=== PATIENT | male | born 1970 | race Two or more races ===

== ENCOUNTER 2024-06-21 19:08 | Inpatient (IN) | payer OTHER ==
[2024-06-21 19:36] VITALS: BMI 22.1
[2024-06-21] MEDS ORDERED: DICYCLOMINE HCL 10 MG CAPSULE PO PRN (20:31)
[2024-06-21] MEDS ORDERED: guaiFENesin 600 MG TABLET.ER (FP) PO PRN (20:31)
[2024-06-21] MEDS ORDERED: MAGNESIUM HYDROX 2400MG/30ML ORAL SUSPENSION 30 ML CUP PO PRN (20:31)
[2024-06-21] MEDS ORDERED: BENZOCAINE/MENTHOL (CHLORASEPTIC ) LOZENGE MM PRN (20:31)
[2024-06-21] MEDS ORDERED: NICOTINE POLACRILEX 4 MG GUM BUC PRN (20:31)
[2024-06-21] MEDS ORDERED: BENZONATATE 200 MG CAPSULE PO PRN (20:31)
[2024-06-21] MEDS ORDERED: IBUPROFEN 400 MG TABLET (FP) PO PRN (20:31)
[2024-06-21] MEDS ORDERED: ACETAMINOPHEN 325 MG TABLET (FP) PO PRN (20:31)
[2024-06-21] MEDS ORDERED: IBUPROFEN 600 MG TABLET (FP) PO PRN (20:31)
[2024-06-21] MEDS ORDERED: BISMUTH SUBSALICYLATE 524 MG/30 ML PO PRN (20:31)
[2024-06-21] MEDS ORDERED: NALOXONE (NARCAN) HCL 4 MG/0.1 ML SPRAY NS PRN (20:31)
[2024-06-21] MEDS ORDERED: MAG HYDROX/AL HYDROX/SIMETH 30 ML UNIT-DOSE CUP PO PRN (20:31)
[2024-06-21] MEDS ORDERED: LOPERAMIDE HCL 2 MG CAPSULE PO PRN (20:31)
[2024-06-21] MEDS ORDERED: POLYETHYLENE GLYCOL (HEALTHYLAX) 3350 17 GM PACKET PO PRN (20:31)
[2024-06-21] MEDS ORDERED: NALOXONE (NYS OPIOID OVERDOSE PROGRAM) 4 MG/0.1 ML SPRAY NS PRN (20:31)
[2024-06-21] MEDS ORDERED: ONDANSETRON *ODT* 4 MG TABLET SL PRN (20:31)
[2024-06-21] MEDS ORDERED: methaDONE HCL 10 MG TABLET (FOR DETOX USE ONLY) ONE (21:24)
[2024-06-21] MEDS ORDERED: METHOCARBAMOL 500 MG TABLET ONE (21:25)
[2024-06-21] MEDS: methaDONE HCL 10 MG TABLET (FOR DETOX USE ONLY) PO ONE (21:27)
[2024-06-21] MEDS: METHOCARBAMOL 500 MG TABLET PO PRN (21:40)
[2024-06-21] MEDS: THIAMINE 100 MG TABLET PO SCH (22:39)
[2024-06-21] MEDS: MELATONIN 5 MG TABLETS PO SCH (22:39)
[2024-06-21] MEDS ORDERED: MELATONIN 5 MG TABLETS ONE (23:05)
[2024-06-22] MEDS: PANTOPRAZOLE 40 MG TABLET PO SCH (09:30)
[2024-06-22] MEDS: methaDONE HCL 10 MG TABLET PO SCH (09:30)
[2024-06-22] MEDS: NICOTINE 21 MG/24 HOURS TOPICAL PATCH TD SCH (09:30)
[2024-06-22] MEDS: GABAPENTIN 300 MG CAPSULE PO SCH (09:30)
[2024-06-22] MEDS: PRENATAL VITAMINS W/ FOLIC ACID TABLET (FP) PO SCH (09:30)
[2024-06-22] MEDS: PSEUDOEPHEDRINE HCL 30 MG TABLET PO SCH (10:52)
[2024-06-22 14:31] LABS: HEMOGLOBIN 13.1 GM/dL (11.7-16.9); MCH 31.7 pg (25.7-33.7); MCHC 33.5 g/dl (32.0-35.9); MEAN CELL VOLUME 94.5 fl (80-96); MEAN PLT VOLUME 9.2 fl (7.5-11.1); PLATELET COUNT 183 10^3/uL (134-434); RBC 4.13 M/mm3 (4.00-5.60); RDW 15.5 % (11.9-15.9)
[2024-06-22 15:13] LABS: CHLORIDE 111 mmol/L (98-107); POTASSIUM 4.1 mmol/L (3.5-5.1); SODIUM 142 mmol/L (136-145)
[2024-06-22 15:15] LABS: ALBUMIN 3.2 g/dl (3.4-5.0); ANION GAP 4 mmol/L (4-13); BLOOD UREA NITROGEN 16.2 mg/dL (7-18); CALCIUM 9.4 mg/dL (8.5-10.1); CO2 26 mmol/L (21-32); GLUCOSE,RANDOM 94 mg/dL (74-106)
[2024-06-22 15:18] LABS: CREATININE 1.1 mg/dL (0.55-1.3); SGOT/AST 16 U/L (15-37); SGPT/ALT 17 U/L (13-61)
[2024-06-22 15:20] LABS: BILIRUBIN,TOTAL 0.3 mg/dL (0.2-1); TOT PROT 8.4 g/dl (6.4-8.2)
[2024-06-22 15:21] LABS: ALK PHOS 72 U/L (45-117)
[2024-06-22] MEDS: cloNIDine HCL 0.1 MG TABLET PO PRN (19:33)
[2024-06-22] MEDS: ATORVASTATIN CA 40 MG TABLET (FP) PO SCH (22:44)
[2024-06-22] MEDS: busPIRone HCL 10 MG TABLET (FP) PO SCH (22:45)
[2024-06-22] MEDS: QUEtiapine FUMARATE 100 MG TABLET (FP) PO SCH (22:45)
[2024-06-23] MEDS: hydrOXYzine PAMOATE 25 MG CAPSULE (FP) PO PRN (07:43)
[2024-06-23 09:55] VITALS: RESP 18
[2024-06-23] MEDS ORDERED: methaDONE HCL 10 MG TABLET (FOR DETOX USE ONLY) PO ONE (10:00)
[2024-06-23] MEDS: QUEtiapine FUMARATE 50 MG TABLET PO ONE (12:05)
[2024-06-23 13:03] VITALS: BP 98/60; PULSE 90; TEMP 97.5
[2024-06-23] MEDS ORDERED: QUEtiapine FUMARATE 100 MG TABLET (FP) PO SCH (22:00)
[2024-06-24] MEDS ORDERED: methaDONE HCL 10 MG TABLET PO ONE (07:58)
[2024-06-25] MEDS ORDERED: methaDONE HCL 10 MG TABLET PO SCH (06:00)
[2024-06-25] MEDS ORDERED: methaDONE HCL 10 MG TABLET (FOR DETOX USE ONLY) PO ONE (10:00)
== END 2024-06-23 15:32 | disposition other institution (70) | DRG 773 ==
LOC: YASAS 19:08 → Y3N 06-22 00:55
PROVIDERS: ADMIT Allergy & Immunology; ATTEND Surgery
PROC: HZ2ZZZZ Detoxification Services for Substance Abuse Treatment (ICD-10-PCS; principal; 2024-06-22)
DX: F11.23 Opioid dependence with withdrawal (principal); F14.20 Cocaine dependence, uncomplicated; F17.210 Nicotine dependence, cigarettes, uncomplicated; F19.24 Other psychoactive substance dependence with psychoactive substance-induced mood disorder; E78.5 Hyperlipidemia, unspecified; G47.00 Insomnia, unspecified; Z59.00 Homelessness unspecified
CPT/HCPCS: 36415; 80053; 80305; 80307; 85027; 86780; 87811; 93005; 93010

== ENCOUNTER 2024-10-02 12:55 | Inpatient (IN) | payer OTHER ==
[2024-10-02 13:13] VITALS: BMI 21.2
[2024-10-02] MEDS ORDERED: BENZONATATE 200 MG CAPSULE PO PRN (15:47)
[2024-10-02] MEDS ORDERED: NICOTINE POLACRILEX 2 MG GUM BUC PRN (15:47)
[2024-10-02] MEDS ORDERED: NICOTINE POLACRILEX 2 MG LOZENGE BC PRN (15:47)
[2024-10-02] MEDS ORDERED: guaiFENesin 600 MG TABLET.ER (FP) PO PRN (15:47)
[2024-10-02] MEDS ORDERED: P-EPHED 60MG/TRIPROLIDI 2.5MG TABLET PO PRN (15:47)
[2024-10-02] MEDS ORDERED: POLYETHYLENE GLYCOL (HEALTHYLAX) 3350 17 GM PACKET PO PRN (15:47)
[2024-10-02] MEDS ORDERED: ACETAMINOPHEN 325 MG TABLET (FP) PO PRN (15:47)
[2024-10-02] MEDS ORDERED: LOPERAMIDE HCL 2 MG CAPSULE PO PRN (15:47)
[2024-10-02] MEDS ORDERED: NALOXONE (NARCAN) HCL 4 MG/0.1 ML SPRAY NS PRN (15:47)
[2024-10-02] MEDS ORDERED: IBUPROFEN 600 MG TABLET (FP) PO PRN (15:47)
[2024-10-02] MEDS ORDERED: MAGNESIUM HYDROX 2400MG/30ML ORAL SUSPENSION 30 ML CUP PO PRN (15:47)
[2024-10-02] MEDS: ATORVASTATIN CA 40 MG TABLET (FP) PO SCH (21:30)
[2024-10-02] MEDS: THIAMINE 100 MG TABLET PO SCH (21:30)
[2024-10-02] MEDS: QUEtiapine FUMARATE 50 MG TABLET PO ONE (21:30)
[2024-10-02] MEDS: MELATONIN 5 MG TABLETS PO SCH (21:32)
[2024-10-02] MEDS ORDERED: MELATONIN 5 MG TABLETS PO SCH (22:00)
[2024-10-02] MEDS: GABAPENTIN 300 MG CAPSULE PO SCH (22:59)
[2024-10-03] MEDS: PRENATAL VITAMINS W/ FOLIC ACID TABLET (FP) PO SCH (10:06)
[2024-10-03] MEDS: PANTOPRAZOLE 40 MG TABLET PO SCH (10:06)
[2024-10-03] MEDS: BUPRENORPHINE/NALOXONE 8 MG/2 MG FILM PACKET SL SCH (10:06)
[2024-10-03 11:10] LABS: CHLORIDE 107 mmol/L (98-107); POTASSIUM 4.2 mmol/L (3.5-5.1); SODIUM 139 mmol/L (136-145)
[2024-10-03 11:12] LABS: HEMATOCRIT 33.1 % (35.4-49); HEMOGLOBIN 11.3 GM/dL (11.7-16.9); MCH 32.7 pg (25.7-33.7); MEAN CELL VOLUME 96.1 fl (80-96); MEAN PLT VOLUME 8.7 fl (7.5-11.1); PLATELET COUNT 176 10^3/uL (134-434); RBC 3.44 M/mm3 (4.00-5.60); RDW 16.2 % (11.9-15.9); WHITE BLOOD COUNT 4.7 K/mm3 (4.0-10.0)
[2024-10-03 11:15] LABS: ANION GAP 6 mmol/L (4-13); CO2 26 mmol/L (21-32); GLUCOSE,RANDOM 87 mg/dL (74-106)
[2024-10-03 11:20] LABS: BILIRUBIN,TOTAL 0.3 mg/dL (0.2-1); BLOOD UREA NITROGEN 14.8 mg/dL (7-18); SGPT/ALT < 6 U/L (13-61)
[2024-10-03 11:21] LABS: CREATININE 0.9 mg/dL (0.55-1.3); SGOT/AST 18 U/L (15-37)
[2024-10-03 11:22] LABS: ALK PHOS 77 U/L (45-117)
[2024-10-03 11:23] LABS: TOT PROT 7.8 g/dl (6.4-8.2)
[2024-10-03] MEDS: QUEtiapine FUMARATE 50 MG TABLET PO SCH (11:26)
[2024-10-03] MEDS: cloNIDine HCL 0.1 MG TABLET PO PRN (14:14)
[2024-10-03] MEDS: QUEtiapine FUMARATE 100 MG TABLET (FP) PO SCH (21:17)
[2024-10-05 11:12] LABS: PH,URINE 5.5 (5.0-8.0); URINE APPEARANCE CLEAR; URINE BILIRUBIN NEGATIVE (NEGATIVE); URINE COLOR YELLOW; URINE GLUCOSE (UA) NEGATIVE (NEGATIVE); URINE KETONE NEGATIVE (NEGATIVE); URINE LEUK ESTERASE NEGATIVE (NEGATIVE); URINE NITRITE NEGATIVE (NEGATIVE); URINE PROTEIN NEGATIVE (NEGATIVE); URINE UROBILINOGEN 0.2 mg/dL (0.2-1.0)
[2024-10-05] MEDS: IBUPROFEN 400 MG TABLET (FP) PO PRN (14:17)
[2024-10-06] MEDS: BUPRENORPHINE/NALOXONE 8 MG/2 MG FILM PACKET SL SCH (21:32)
[2024-10-06] MEDS: QUEtiapine FUMARATE 100 MG TABLET (FP) PO SCH (21:32)
[2024-10-07] MEDS: BUPRENORPHINE/NALOXONE 4 MG/1 MG FILM PACKET SL SCH (13:40)
[2024-10-07] MEDS: QUEtiapine FUMARATE 200 MG TABLET PO SCH (19:52)
[2024-10-08] MEDS: QUEtiapine FUMARATE 100 MG TABLET (FP) PO SCH (10:09)
[2024-10-10] MEDS: cloNIDine HCL 0.1 MG TABLET PO PRN (17:36)
[2024-10-11] MEDS: VITAMINS A AND D TOPICAL OINTMENT TP PRN (10:33)
[2024-10-12] MEDS: BUPRENORPHINE/NALOXONE 8 MG/2 MG FILM PACKET SL SCH (14:00)
[2024-10-13] MEDS: BENZOCAINE/MENTHOL (CHLORASEPTIC ) LOZENGE MM PRN (10:03)
[2024-10-13] MEDS: MAG HYDROX/AL HYDROX/SIMETH 30 ML UNIT-DOSE CUP PO PRN (11:54)
[2024-10-13] MEDS: QUEtiapine FUMARATE 300 MG TABLET PO SCH (21:33)
[2024-10-15] MEDS: QUEtiapine FUMARATE 200 MG TABLET PO SCH (20:30)
[2024-10-15 22:25] VITALS: RESP 18
[2024-10-16 06:54] VITALS: TEMP 97.2
[2024-10-16 11:15] VITALS: BP 117/66; PULSE 86
== END 2024-10-16 13:28 | disposition home or self-care (01) | DRG 772 ==
LOC: YASAS 12:55 → Y5N 16:41 → Y3NR 10-04 13:25 → Y5N 10-04 13:27
PROVIDERS: ADMIT Psychiatry & Neurology Pain Medicine; ATTEND Psychiatry & Neurology Pain Medicine
PROC: HZ42ZZZ Group Counseling for Substance Abuse Treatment, Cognitive-Behavioral (ICD-10-PCS; principal; 2024-10-02)
DX: F11.20 Opioid dependence, uncomplicated (principal); F14.20 Cocaine dependence, uncomplicated; F17.210 Nicotine dependence, cigarettes, uncomplicated; F31.9 Bipolar disorder, unspecified; F19.282 Other psychoactive substance dependence with psychoactive substance-induced sleep disorder; F19.24 Other psychoactive substance dependence with psychoactive substance-induced mood disorder; F20.9 Schizophrenia, unspecified; G47.00 Insomnia, unspecified; M54.50 Low back pain, unspecified; G89.29 Other chronic pain; Z59.01 Sheltered homelessness
CPT/HCPCS: 36415; 80053; 80305; 80307; 81003; 85027; 86780; 87811